=== PATIENT | female | born 1930 | race Caucasian/White ===

== ENCOUNTER → 2019-03-23 | Outpatient (CLI) | payer MEDICARE, OTHER ==
[~2019-03-23] MED LIST: ASPI-496 PO; CARB1TAB43 PO; CEFU250T66 PO; CHOL2000 PO; CYAN100072 PO; ESTR30CR TP; FLUO20CA19 PO; LOSA50TA14 PO; MULT-658 PO; NITR50CA PO; OXYB10TA PO; POLY17PO5 PO; RANI150T4 PO; ROPI0.5T2 PO; ROPI1TAB2 PO
== END | disposition home or self-care (01) ==
LOC: STAR 13:34
PROVIDERS: ATTEND Urology
DX: Z01.818 Encounter for other preprocedural examination (principal); N39.498 Other specified urinary incontinence; I44.7 Left bundle-branch block, unspecified
CPT/HCPCS: 93005

== ENCOUNTER 2019-03-27 10:04 | Inpatient (IN) | payer MEDICARE, OTHER ==
[~2019-03-27] VITALS: Ht 172.7 cm; Wt 105.2 kg
[~2019-03-27 10:04] MED LIST changes: -CEFU250T66 PO
[2019-03-27] MEDS ORDERED: LACTATED RINGERS 1,000 ML IV SCH ×2 (10:44→16:30)
[2019-03-27] MEDS ORDERED: GENTAMICIN 80 MG/2 ML ONE (12:38)
[2019-03-27] MEDS ORDERED: BUPIVACAINE/PF 0.5% ONE (12:44)
[2019-03-27] MEDS ORDERED: DEXAMETHASONE 4 MG/ML, 1ML ONE (12:47)
[2019-03-27] MEDS ORDERED: FENTANYL PF 250 MCG/5ML ONE (12:47)
[2019-03-27] MEDS ORDERED: ROCURONIUM 10MG/ML,5ML ONE (12:47)
[2019-03-27] MEDS ORDERED: GLYCOPYRROLATE 0.2MG/1ML, 5ML ONE (12:47)
[2019-03-27] MEDS ORDERED: PROPOFOL 10 MG/ML, 20ML ONE (12:47)
[2019-03-27] MEDS ORDERED: LIDOCAINE 2% 100MG/5ML SYRINGE ONE (12:55)
[2019-03-27] MEDS ORDERED: MEPERIDINE/PF 25MG/0.5ML IVPush PRN (14:00)
[2019-03-27] MEDS ORDERED: hydrALAzine 20 MG/ML, 1ML IV PRN (14:00)
[2019-03-27] MEDS ORDERED: EPHEDRINE 50 MG/ML, 1ML IVPush PRN (14:00)
[2019-03-27] MEDS ORDERED: METOPROLOL 1 MG/ML, 5ML IV PRN (14:00)
[2019-03-27] MEDS ORDERED: ONDANSETRON 2MG/ML, 2ML IV PRN ×2 (14:00→19:30)
[2019-03-27] MEDS ORDERED: HYDROmorphone 2 MG/ML, 1ML IVPush PRN (14:00)
[2019-03-27] MEDS ORDERED: ALBUTEROL/IPRATROPIUM 2.5MG/0.5MG, 3 ML NPPB PRN (14:00)
[2019-03-27] MEDS ORDERED: HYDROcodone/APAP 7.5-325MG/15ML UDC PO PRN (14:00)
[2019-03-27] MEDS ORDERED: FENTANYL PF 100 MCG/2ML IV PRN (14:00)
[2019-03-27] MEDS ORDERED: MIDAZOLAM 1 MG/ML, 2ML IV PRN (14:00)
[2019-03-27] MEDS ORDERED: LABETALOL 5MG/ML, 20ML IV PRN (14:00)
[2019-03-27] MEDS ORDERED: DEXAMETHASONE 4 MG/ML, 1ML IV PRN (14:00)
[2019-03-27] MEDS ORDERED: DIPHENHYDRAMINE 50 MG/ML, 1ML IVPush PRN (14:00)
[2019-03-27] MEDS ORDERED: hydrALAzine 20 MG/ML, 1ML ONE (14:14)
[2019-03-27] MEDS ORDERED: HYDROcodone/APAP 5/325 TABLET PO PRN ×2 (17:00→19:30)
[2019-03-27 18:05] VITALS: BP 152/62
[2019-03-27] MEDS ORDERED: POLYETHYLENE GLYCOL 17 GM PACKET PO PRN (20:00)
[2019-03-27] MEDS: LACTATED RINGERS 1,000 ML IV SCH (20:11)
[2019-03-27] MEDS: OXYBUTYNIN CHLORIDE 5 MG TABLET PO SCH (20:12)
[2019-03-27] MEDS: CARBIDOPA/LEVODOPA CR 25 MG/100 MG TABLET PO SCH (20:12)
[2019-03-27] MEDS: CEFUROXIME 250 MG TABLET PO SCH (20:13)
[2019-03-27 20:18] VITALS: BP 146/53
[2019-03-27] MEDS ORDERED: ESTROGENS CONJUGATED VAG CRM 0.625MG/1G, 30GM VG SCH (21:00)
[2019-03-27] MEDS ORDERED: ROPINIROLE 0.5MG TABLET PO SCH (21:00)
[2019-03-28] MEDS: ACETAMINOPHEN 325 MG TABLET PO PRN (00:03)
[2019-03-28 00:12] VITALS: BP 150/62
[2019-03-28 03:41] VITALS: BP 160/58
[2019-03-28] MEDS: LACTATED RINGERS 1,000 ML IV SCH ×2 (05:34→16:27)
[2019-03-28 06:42] VITALS: BP 171/69
[2019-03-28] MEDS ORDERED: ROPINIROLE 0.25MG TABLET ONE (07:30)
[2019-03-28] MEDS: CEFUROXIME 250 MG TABLET PO SCH ×2 (07:35→20:27)
[2019-03-28] MEDS: FAMOTIDINE 20 MG TABLET PO SCH (07:35)
[2019-03-28] MEDS: CARBIDOPA/LEVODOPA CR 25 MG/100 MG TABLET PO SCH ×3 (07:35→20:27)
[2019-03-28] MEDS: FLUOXETINE HCL 20 MG CAPSULE PO SCH (07:35)
[2019-03-28] MEDS: LOSARTAN 50MG TABLET PO SCH (07:35)
[2019-03-28] MEDS: CYANOCOBALAMIN 1,000 MCG TABLET PO SCH (07:36)
[2019-03-28] MEDS: OXYBUTYNIN CHLORIDE 5 MG TABLET PO SCH ×2 (07:36→20:27)
[2019-03-28] MEDS: MULTIVITAMIN 1 TABLET PO SCH (07:36)
[2019-03-28] MEDS: CHOLECALCIFEROL 1,000 UNIT TABLET PO SCH (07:36)
[2019-03-28] MEDS ORDERED: CEFU250T66 PO (08:43)
[2019-03-28 08:49] VITALS: BP 164/59
[2019-03-28] MEDS ORDERED: ROPINIROLE 1MG TABLET PO SCH (09:00)
[2019-03-28] MEDS ORDERED: hydrALAzine 20 MG/ML, 1ML IV PRN (14:00)
[2019-03-28 14:10] VITALS: BP 146/57
[2019-03-28 14:32] LABS: BASOPHILS # (AUTO) 0.03 x10^3/uL (0-0.1); BASOPHILS % (AUTO) 0 % (0-1); EOSINOPHILS % (AUTO) 0 % (1-7); LYMPHOCYTES # (AUTO) 0.75 x10^3/uL (1-3.4); LYMPHOCYTES % (AUTO) 8 % (22-44); MD NO; MEAN CORPUSCULAR HEMOGLOBIN 29.4 pg (27.0-34.8); MEAN CORPUSCULAR HGB CONC 32.3 g/dL (32.4-35.8); MEAN CORPUSCULAR VOLUME 91.2 fL (80-100); MEAN PLATELET VOLUME 7.5 fL (7.4-10.4); MONOCYTES # (AUTO) 0.65 x10^3/uL (0.2-0.8); MONOCYTES % (AUTO) 7 % (2-9); NEUTROPHILS # (AUTO) 8.21 x10^3/uL (1.8-6.8); NEUTROPHILS % (AUTO) 85 % (42-75); PLATELET COUNT 244 x10^3/uL (130-400); RED BLOOD COUNT 5.04 x10^6/uL (3.82-5.3)
[2019-03-28 14:43] LABS: ALANINE AMINOTRANSFERASE 12 U/L (12-78); ALBUMIN 3.1 g/dL (3.4-5.0); ANION GAP 9 mmol/L (5-15); CALCIUM 8.9 mg/dL (8.5-10.1); CHLORIDE 109 mmol/L (98-107)
[2019-03-28 14:50] LABS: ALKALINE PHOSPHATASE 135 U/L (45-117); BILIRUBIN,TOTAL 0.4 mg/dL (0.2-1.0); CREATININE 1.16 mg/dL (0.55-1.02); TOTAL PROTEIN 7.2 g/dL (6.4-8.2)
[2019-03-28] MEDS: ROPINIROLE 0.5MG TABLET PO SCH (20:27)
[2019-03-28 20:58] VITALS: BP 153/70
[2019-03-29 01:43] VITALS: BP_SYST 166; BP_SYST 20; BP_DIAS 75
[2019-03-29] MEDS: LACTATED RINGERS 1,000 ML IV SCH ×2 (03:24→14:26)
[2019-03-29 08:07] VITALS: BP 147/73
[2019-03-29] MEDS: CEFUROXIME 250 MG TABLET PO SCH ×2 (08:12→21:10)
[2019-03-29] MEDS: LOSARTAN 50MG TABLET PO SCH (08:13)
[2019-03-29] MEDS: CHOLECALCIFEROL 1,000 UNIT TABLET PO SCH (08:13)
[2019-03-29] MEDS: MULTIVITAMIN 1 TABLET PO SCH (08:13)
[2019-03-29] MEDS: FAMOTIDINE 20 MG TABLET PO SCH (08:13)
[2019-03-29] MEDS: CYANOCOBALAMIN 1,000 MCG TABLET PO SCH (08:13)
[2019-03-29] MEDS: OXYBUTYNIN CHLORIDE 5 MG TABLET PO SCH ×2 (08:13→21:10)
[2019-03-29] MEDS: ROPINIROLE 1MG TABLET PO SCH (08:13)
[2019-03-29] MEDS: FLUOXETINE HCL 20 MG CAPSULE PO SCH (08:13)
[2019-03-29] MEDS: CARBIDOPA/LEVODOPA CR 25 MG/100 MG TABLET PO SCH ×3 (08:13→21:10)
[2019-03-29 10:46] LABS: CLOSTRIDIUM DIFFICILE ANTIGEN NEGATIVE; CLOSTRIDIUM DIFFICILE TOXIN NEGATIVE (Negative)
[2019-03-29 12:37] VITALS: BP 159/70
[2019-03-29] MEDS: ROPINIROLE 0.5MG TABLET PO SCH (21:10)
[2019-03-29 21:58] VITALS: BP 165/79
[2019-03-29 23:31] VITALS: BP 153/77
[2019-03-30] MEDS: LACTATED RINGERS 1,000 ML IV SCH ×3 (00:10→20:30)
[2019-03-30 03:50] VITALS: BP 130/58
[2019-03-30] MEDS: MULTIVITAMIN 1 TABLET PO SCH (09:41)
[2019-03-30] MEDS: CHOLECALCIFEROL 1,000 UNIT TABLET PO SCH (09:41)
[2019-03-30] MEDS: CARBIDOPA/LEVODOPA CR 25 MG/100 MG TABLET PO SCH ×3 (09:41→23:03)
[2019-03-30] MEDS: CEFUROXIME 250 MG TABLET PO SCH ×2 (09:42→23:04)
[2019-03-30] MEDS: FLUOXETINE HCL 20 MG CAPSULE PO SCH (09:42)
[2019-03-30] MEDS: OXYBUTYNIN CHLORIDE 5 MG TABLET PO SCH ×2 (09:43→23:02)
[2019-03-30] MEDS: ROPINIROLE 1MG TABLET PO SCH (09:43)
[2019-03-30] MEDS: CYANOCOBALAMIN 1,000 MCG TABLET PO SCH (09:43)
[2019-03-30] MEDS: FAMOTIDINE 20 MG TABLET PO SCH (09:44)
[2019-03-30] MEDS: LOSARTAN 50MG TABLET PO SCH (09:44)
[2019-03-30 09:58] VITALS: BP 176/72
[2019-03-30 10:51] VITALS: BP 154/77
[2019-03-30 14:32] VITALS: BP 154/69
[2019-03-30 19:22] VITALS: BP 168/72
[2019-03-30] MEDS: ROPINIROLE 0.5MG TABLET PO SCH (23:03)
[2019-03-31 01:35] VITALS: BP 146/76
[2019-03-31] MEDS: LACTATED RINGERS 1,000 ML IV SCH (06:30)
[2019-03-31] MEDS: CEFUROXIME 250 MG TABLET PO SCH ×2 (08:49→20:38)
[2019-03-31] MEDS: CHOLECALCIFEROL 1,000 UNIT TABLET PO SCH (08:49)
[2019-03-31] MEDS: CARBIDOPA/LEVODOPA CR 25 MG/100 MG TABLET PO SCH ×3 (08:49→20:38)
[2019-03-31] MEDS: MULTIVITAMIN 1 TABLET PO SCH (08:49)
[2019-03-31] MEDS: FAMOTIDINE 20 MG TABLET PO SCH (08:50)
[2019-03-31] MEDS: CYANOCOBALAMIN 1,000 MCG TABLET PO SCH (08:50)
[2019-03-31] MEDS: OXYBUTYNIN CHLORIDE 5 MG TABLET PO SCH ×2 (08:50→20:38)
[2019-03-31] MEDS: ROPINIROLE 1MG TABLET PO SCH (08:50)
[2019-03-31] MEDS: FLUOXETINE HCL 20 MG CAPSULE PO SCH (08:51)
[2019-03-31] MEDS: LOSARTAN 50MG TABLET PO SCH (08:52)
[2019-03-31 08:53] VITALS: BP 171/81
[2019-03-31 09:47] VITALS: BP 147/68
[2019-03-31] MEDS: LISINOPRIL 10 MG TABLET PO SCH (11:11)
[2019-03-31 13:32] VITALS: BP 140/64
[2019-03-31 20:04] VITALS: BP 146/79
[2019-03-31] MEDS: ROPINIROLE 0.5MG TABLET PO SCH (20:38)
[2019-04-01 01:51] VITALS: BP 141/63
[2019-04-01 07:53] VITALS: BP 176/73
[2019-04-01] MEDS: CYANOCOBALAMIN 1,000 MCG TABLET PO SCH (07:58)
[2019-04-01] MEDS: FAMOTIDINE 20 MG TABLET PO SCH (07:58)
[2019-04-01] MEDS: CEFUROXIME 250 MG TABLET PO SCH (07:58)
[2019-04-01] MEDS: FLUOXETINE HCL 20 MG CAPSULE PO SCH (08:00)
[2019-04-01] MEDS: CHOLECALCIFEROL 1,000 UNIT TABLET PO SCH (08:00)
[2019-04-01] MEDS: OXYBUTYNIN CHLORIDE 5 MG TABLET PO SCH (08:00)
[2019-04-01] MEDS: LOSARTAN 50MG TABLET PO SCH (08:00)
[2019-04-01] MEDS: CARBIDOPA/LEVODOPA CR 25 MG/100 MG TABLET PO SCH ×2 (08:01→16:00)
[2019-04-01] MEDS: MULTIVITAMIN 1 TABLET PO SCH (08:01)
[2019-04-01] MEDS: LISINOPRIL 10 MG TABLET PO SCH (08:01)
[2019-04-01] MEDS: ROPINIROLE 1MG TABLET PO SCH (08:01)
[2019-04-01] MEDS ORDERED: CEFU250T66 PO (08:06)
[2019-04-01] MEDS: ACETAMINOPHEN 325 MG TABLET PO PRN (13:21)
[2019-04-01 13:53] VITALS: BP 136/73
[2019-04-01] MEDS ORDERED: HEMORRHOIDAL OINT, 28 GM (PREP H) RC PRN (14:00)
== END 2019-04-01 14:45 | DRG 695 ==
LOC: OUT 10:04 → 4NOR 17:43 → OUT 23:29 → 4NOR 03-28 17:26 → OBSVTOIN 03-29 09:47
PROVIDERS: ADMIT Urology; ATTEND Urology
PROC: 0T9B30Z Drainage of Bladder with Drainage Device, Percutaneous Approach (ICD-10-PCS; 2019-03-27)
PROC: 0TJB8ZZ Inspection of Bladder, Via Natural or Artificial Opening Endoscopic (ICD-10-PCS; principal; 2019-03-27 11:45)
DX: R33.8 Other retention of urine (principal); G92 Toxic encephalopathy; R53.2 Functional quadriplegia; R44.3 Hallucinations, unspecified; N31.9 Neuromuscular dysfunction of bladder, unspecified; N30.90 Cystitis, unspecified without hematuria; G20 Parkinson's disease; G25.81 Restless legs syndrome; I10 Essential (primary) hypertension; Z96.652 Presence of left artificial knee joint; Z85.038 Personal history of other malignant neoplasm of large intestine; Z87.440 Personal history of urinary (tract) infections; Z90.49 Acquired absence of other specified parts of digestive tract; Z90.710 Acquired absence of both cervix and uterus; Z95.0 Presence of cardiac pacemaker; Z88.1 Allergy status to other antibiotic agents; Z88.0 Allergy status to penicillin; Z88.8 Allergy status to other drugs, medicaments and biological substances
CPT/HCPCS: 70450; 80053; 82962; 83735; 85025; 87324; G0378; J1100; J2704; J3010; J0360; J1580; J7120

== ENCOUNTER 2019-12-13 09:40 | Day surgery (SDC) | payer MEDICARE, OTHER ==
[~2019-12-13] VITALS: Ht 172.7 cm; Wt 96.6 kg
[~2019-12-13 09:40] MED LIST changes: +CEFU250T66 PO; +FENTANYL PF 100 MCG/2ML ONE; +MIDAZOLAM 1 MG/ML, 2ML ONE; -OXYB10TA PO; +OXYB10TA26 PO; -ROPI0.5T2 PO; +ROPI0.5T4 PO; -ROPI1TAB2 PO; +ROPI1TAB4 PO
[2019-12-13 10:02] VITALS: BP 118/73
[2019-12-13] MEDS ORDERED: HYDR-3342 PO (10:23)
[2019-12-13] MEDS ORDERED: COLE625T12 PO (10:23)
[2019-12-13] MEDS ORDERED: AMLO-150 PO (10:23)
[2019-12-13] MEDS ORDERED: OMEP-110 PO (10:23)
[2019-12-13] MEDS ORDERED: LIDOCAINE-MPF 1%, 2ML ONE (10:31)
[2019-12-13] MEDS ORDERED: PROPOFOL 10 MG/ML, 20ML ONE (10:43)
[2019-12-13] MEDS ORDERED: hydrALAzine 20 MG/ML, 1ML IV PRN (11:30)
[2019-12-13] MEDS ORDERED: ONDANSETRON 2MG/ML, 2ML IV PRN (11:30)
[2019-12-13] MEDS ORDERED: MEPERIDINE/PF 25MG/ML,1ML IVPush PRN (11:30)
[2019-12-13] MEDS ORDERED: ACETAMINOPHEN 325 MG TABLET PO PRN (11:30)
[2019-12-13] MEDS ORDERED: FENTANYL PF 100 MCG/2ML IV PRN (11:30)
== END 2019-12-13 13:25 | disposition home or self-care (01) ==
LOC: OUT 09:40
PROVIDERS: ATTEND Internal Medicine
DX: R19.7 Diarrhea, unspecified (principal); K63.89 Other specified diseases of intestine; K64.8 Other hemorrhoids; G20 Parkinson's disease; G25.81 Restless legs syndrome; I12.9 Hypertensive chronic kidney disease with stage 1 through stage 4 chronic kidney disease, or unspecified chronic kidney disease; N18.3 Chronic kidney disease, stage 3 (moderate); Z85.038 Personal history of other malignant neoplasm of large intestine; Z86.010 Personal history of colon polyps; Z98.0 Intestinal bypass and anastomosis status; Z88.1 Allergy status to other antibiotic agents; Z88.0 Allergy status to penicillin; Z88.8 Allergy status to other drugs, medicaments and biological substances; Z90.49 Acquired absence of other specified parts of digestive tract; Z90.710 Acquired absence of both cervix and uterus; Z96.659 Presence of unspecified artificial knee joint; Z87.891 Personal history of nicotine dependence
CPT/HCPCS: 45380; 88305; 93005; J2250; J2704; J3010